=== PATIENT | male | born 1975 | race Caucasian/White ===

== ENCOUNTER 2017-12-05 15:00 | Inpatient (IN) | payer MEDICAID, OTHER ==
[~2017-12-05] VITALS: Ht 175.3 cm; Wt 76.2 kg
[2017-12-05 16:03] LABS: BASOPHILS % (AUTO) 0.4 % (0.0-2.0); EOSINOPHILS % (AUTO) 0 % (1.0-6.0); HEMATOCRIT 49.5 % (41-53); HEMOGLOBIN 17.5 g/dL (13.5-17.5); LYMPHOCYTES # (AUTO) 1.3 K/uL (1.0-4.8); MEAN CORPUSCULAR HEMOGLOBIN 32.1 pg (26.0-34.0); MEAN CORPUSCULAR HGB CONC 35.3 G/dL (31.0-37.0); MEAN CORPUSCULAR VOLUME 91 fL (80-100); MONOCYTES # (AUTO) 0.5 K/uL (0.1-1.0); MONOCYTES % (AUTO) 5.9 % (2.0-9.0); NEUTROPHILS # (AUTO) 6.4 K/uL (1.8-7.7); NEUTROPHILS % (AUTO) 77.7 % (40.0-70.0); PLATELET COUNT (AUTO) 205 K/uL (150-450); RED BLOOD CELL COUNT(AUTO) 5.44 MIL/uL (4.50-5.90); RED CELL DISTRIBUTION WIDTH 16.7 % (11.5-14.5)
[2017-12-05 16:12] LABS: ANION GAP 18 mmol/L (8-16); CALCIUM, TOTAL 8.9 mg/dL (8.8-10.5); CARBON DIOXIDE 22 mmol/L (22-29); CHLORIDE 97 mmol/L (98-107); CREATININE 0.89 mg/dL (0.60-1.30); GLOMERULAR FILTR. RATE CALC > 60 mL/min (>60); GLUCOSE,RANDOM 89 mg/dL (70-110); POTASSIUM 4.1 mmol/L (3.5-5.1); SODIUM SERUM 137 mmol/L (136-145); UREA NITROGEN, BLOOD 9 mg/dL (7-18)
[2017-12-05] MEDS ORDERED: SODIUM CHLORIDE 0.9% 1,000 ML IV ONE (16:15)
[2017-12-05] MEDS ORDERED: ChlordiazePOXIDE HCL 25 MG CAPSULE PO ONE (16:15)
[2017-12-05 16:18] LABS: ALANINE AMINOTRANSFERASE 99 U/L (12-78); ALBUMIN 4.5 g/dL (3.4-5.0); ALKALINE PHOSPHATASE 84 U/L (46-116); ASPARTATE AMINOTRANSFERASE 125 U/L (15-37); BILIRUBIN,TOTAL 0.3 mg/dL (0.1-1.0); TOTAL PROTEIN, SERUM 8.8 g/dL (6.4-8.2)
[2017-12-05] MEDS ORDERED: HALOPERIDOL 5 MG TABLET PO PRN (17:45)
[2017-12-05 18:32] LABS: APPEARANCE,URINE CLEAR (CLEAR); BILIRUBIN,URINE NEGATIVE (NEGATIVE); GLUCOSE, URINE (UA) NEGATIVE (NEGATIVE); KETONES,URINE 15 mg/dL (NEGATIVE); LEUKOCYTE ESTERASE ,URINE NEGATIVE (NEGATIVE); NITRATE,URINE NEGATIVE (NEGATIVE); OCCULT BLOOD,URINE MODERATE (NEGATIVE); PH,URINE 5.5 (5.0-8.0); PROTEIN,URINE SEE CONFIRM (NEGATIVE); UROBILINOGEN,URINE 0.2 mg/dL (<=1.0)
[2017-12-05 18:36] LABS: AMPHET/METH SCREEN,URINE NEGATIVE (NEGATIVE); BARBITURATE SCREEN, URINE NEGATIVE (NEGATIVE); BENZODIAZEPINES SCREEN,URINE NEGATIVE (NEGATIVE); CANNABINOID SCREEN,URINE POSITIVE (NEGATIVE); COCAINE SCREEN,URINE NEGATIVE (NEGATIVE); METHADONE SCREEN, URINE NEGATIVE (NEGATIVE); OPIATE SCREEN,URINE NEGATIVE (NEGATIVE)
[2017-12-05 18:37] LABS: PHENCYCLIDINE SCREEN,URINE NEGATIVE (NEGATIVE)
[2017-12-05 18:42] LABS: BACTERIA,URINE None Seen /HPF (None Seen); SQUAMOUS EPITHELIAL CELL,UR Rare /LPF (None Seen); SULFOSALICYLIC ACID,URINE 3+ (Negative); WBC,URINE 0-2 /HPF (0-5)
[2017-12-05] MEDS: ZOLPIDEM TARTRATE 10 MG TABLET PO PRN (20:02)
[2017-12-05] MEDS: LORazepam 2 MG TABLET PO PRN (20:03)
[2017-12-05] MEDS ORDERED: PHENobarbital SODIUM 65 MG/ML VIAL IVP ONE (20:45)
[2017-12-05] MEDS: MIRTAZAPINE 30 MG TABLET PO SCH (21:32)
[2017-12-05 21:54] VITALS: BP 123/79
[2017-12-06] VITALS (8 sets, daily range): BP systolic 119–139; BP diastolic 67–96
[2017-12-06] MEDS: LORazepam 2 MG TABLET PO PRN ×4 (00:04→20:00)
[2017-12-06 07:10] LABS: CHOL/HDL RATIO 3.3 (4.2-7.3)
[2017-12-06] MEDS: OXYMETAZOLINE HCL 0.05% 15 ML NASAL SPRAY NASAL SCH ×2 (08:42→17:31)
[2017-12-06] MEDS ORDERED: AZITHROMYCIN 250 MG TABLET PO ONE (09:00)
[2017-12-06] MEDS: NICOTINE 14 MG/24 HOUR PATCH TD SCH (09:27)
[2017-12-06] MEDS ORDERED: LORazepam 2 MG TABLET PO PRN (11:15)
[2017-12-06] MEDS ORDERED: GuaiFENesin/D-METHORPHAN [SUGAR-FREE] 200-20MG/10 ML SYRUP UDCUP PO PRN (11:15)
[2017-12-06] MEDS ORDERED: CYANOCOBALAMIN 1,000 MCG/ML VIAL IM ONE (11:15)
[2017-12-06] MEDS ORDERED: LOPERAMIDE HCL 2 MG CAPSULE PO PRN (11:15)
[2017-12-06] MEDS ORDERED: HydrOXYzine PAMOATE 50 MG CAPSULE PO PRN (11:15)
[2017-12-06] MEDS: SERTRALINE HCL 100 MG TABLET PO SCH (13:07)
[2017-12-06] MEDS: MULTIVITAMINS WITH MINERALS, THERAPEUTIC TABLET PO SCH (13:07)
[2017-12-06] MEDS: LORATADINE 10 MG TABLET PO SCH (13:07)
[2017-12-06] MEDS: FOLIC ACID 1 MG TABLET PO SCH (13:08)
[2017-12-06] MEDS: THIAMINE HCL 100 MG TABLET PO SCH (17:31)
[2017-12-06] MEDS: MIRTAZAPINE 30 MG TABLET PO SCH (20:55)
[2017-12-06] MEDS ORDERED: QUEtiapine FUMARATE 200 MG TABLET PO SCH (21:00)
[2017-12-07] MEDS: ZOLPIDEM TARTRATE 10 MG TABLET PO PRN (00:13)
[2017-12-07 00:16] VITALS: BP 138/81
[2017-12-07 02:15] VITALS: BP 126/76
[2017-12-07 06:50] VITALS: BP 122/89
[2017-12-07] MEDS ORDERED: LORazepam 2 MG TABLET PO PRN (07:00)
[2017-12-07] MEDS: NICOTINE 14 MG/24 HOUR PATCH TD SCH (08:12)
[2017-12-07] MEDS: LORATADINE 10 MG TABLET PO SCH (08:12)
[2017-12-07] MEDS: SERTRALINE HCL 100 MG TABLET PO SCH (08:12)
[2017-12-07] MEDS: FOLIC ACID 1 MG TABLET PO SCH (08:12)
[2017-12-07] MEDS: THIAMINE HCL 100 MG TABLET PO SCH (08:12)
[2017-12-07] MEDS: MULTIVITAMINS WITH MINERALS, THERAPEUTIC TABLET PO SCH (08:12)
[2017-12-07] MEDS: OXYMETAZOLINE HCL 0.05% 15 ML NASAL SPRAY NASAL SCH (08:13)
[2017-12-07] MEDS: LORazepam 2 MG TABLET PO SCH ×2 (08:14→12:58)
[2017-12-07 08:17] LABS: HEMOGLOBIN A1C 5.1 % (4.5-6.2)
[2017-12-07 08:36] LABS: ALANINE AMINOTRANSFERASE 106 U/L (12-78); ALBUMIN 4.1 g/dL (3.4-5.0); ALKALINE PHOSPHATASE 62 U/L (46-116); ANION GAP 12 mmol/L (8-16); ASPARTATE AMINOTRANSFERASE 98 U/L (15-37); BILIRUBIN,TOTAL 0.9 mg/dL (0.1-1.0); CALCIUM, TOTAL 9.4 mg/dL (8.8-10.5); CARBON DIOXIDE 25 mmol/L (22-29); CHLORIDE 96 mmol/L (98-107); CHOL/HDL RATIO 3.4 (4.2-7.3); CHOLESTEROL 210 mg/dL (131-200); CREATININE 0.67 mg/dL (0.60-1.30); GLOMERULAR FILTR. RATE CALC > 60 mL/min (>60); GLUCOSE,RANDOM 106 mg/dL (70-110); HDL CHOLESTEROL 61 mg/dL (40-60); LDL CHOL (CALC.) 121 mg/dL (0-130); POTASSIUM 3.8 mmol/L (3.5-5.1); SODIUM SERUM 133 mmol/L (136-145); THYROID STIMULATING HORMONE 3.68 uIU/mL (0.36-3.74); TOTAL PROTEIN, SERUM 7.9 g/dL (6.4-8.2); TRIGLYCERIDES 142 mg/dL (15-150); UREA NITROGEN, BLOOD 10 mg/dL (7-18)
[2017-12-07] MEDS ORDERED: AZITHROMYCIN 250 MG TABLET PO SCH (09:00)
[2017-12-07 10:15] VITALS: BP 130/90
[2017-12-07] MEDS ORDERED: MIRT30 PO (11:52)
[2017-12-07] MEDS ORDERED: SERT100T12 PO (11:52)
[2017-12-07] MEDS ORDERED: QUET200T PO (11:52)
[2017-12-07] MEDS ORDERED: AZIT250T9 PO (11:54)
[2017-12-07] MEDS ORDERED: LORA10TA7 PO (11:54)
[2017-12-07] MEDS ORDERED: OXYM-30 NASAL (11:55)
[2017-12-07 12:29] LABS: VITAMIN B12 LEVEL > 2000 pg/mL (211-911)
[2017-12-09] MEDS ORDERED: LORazepam 1 MG TABLET PO PRN (07:00)
[2017-12-09] MEDS ORDERED: LORazepam 1 MG TABLET PO SCH (09:00)
[2017-12-10] MEDS ORDERED: LORazepam 1 MG TABLET PO PRN (07:00)
== END 2017-12-07 14:30 | disposition home or self-care (01) | DRG 754 ==
LOC: EMS 15:02 → 3EI 18:21
PROVIDERS: ADMIT Psychiatry & Neurology Psychiatry; ATTEND Psychiatry & Neurology Psychiatry
DX: F32.9 Major depressive disorder, single episode, unspecified (principal); F10.231 Alcohol dependence with withdrawal delirium; R45.851 Suicidal ideations; E86.0 Dehydration; F12.90 Cannabis use, unspecified, uncomplicated; F41.1 Generalized anxiety disorder; J30.9 Allergic rhinitis, unspecified; F17.200 Nicotine dependence, unspecified, uncomplicated; J40 Bronchitis, not specified as acute or chronic; Z79.899 Other long term (current) drug therapy; Z82.49 Family history of ischemic heart disease and other diseases of the circulatory system; Z91.14 Patient's other noncompliance with medication regimen
CPT/HCPCS: 80074; 82306; 82607; 82746; 83036; 84439; 84443; 96360; 96361; 99285; G0480; J3420; J7030